=== PATIENT | male | born 2000 | race Caucasian/White ===

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

== ENCOUNTER 2018-10-17 05:14 | Emergency (ER) | payer BC ==
[2018-10-17] MEDS ORDERED: ONDANSETRON DISINTEGRATING 4 MG TAB PO ONE (05:55)
--- NOTE | 2018-10-17 06:23 | EDPHY ---
H & P Stated Complaint: body feels weird after drinking and and taking a lot caffeine pills Time Seen by Provider: 10/17/18 06:06 HPI/ROS: HPI The patient presents with palpitations, chest discomfort which have been present for the last several hours. The patient had a drinking binge which began 2 days ago at 8p and lasted until yesterday at 2:00 p.m. In which he drank multiple beers, cannot recall quantity exactly. At about noon yesterday he also ingested 900 to a 1000 mg of caffeine tabs in an effort to stay awake. He has been up for much of the night and feels fatigued though cannot rest. He has not had any nausea or vomiting. He has not had any shortness of breath. He is here with his friend who used similar substances and is having similar symptoms. He denies any other drug use or prescription medication use. REVIEW OF SYSTEMS 10 systems were reviewed and negative with the exception of the elements mentioned in the history of present illness. PMHx: Healthy Soc Hx: College student PHYSICAL General Appearance: Alert, no appears anxious Eyes: Pupils equal and round no pallor or injection ENT, Mouth: Mucous membranes moist Respiratory: There are no retractions, lungs are clear to auscultation Cardiovascular: Regular rate and rhythm Gastrointestinal: Abdomen is soft and non-tender, no masses, bowel sounds normal Neurological: A&O, moves all extremities Skin: Warm and dry, no rashes Musculoskeletal: Neck is supple non tender Extremities: symmetrical, full range of motion Psychiatric: Patient is oriented X 3, there is no agitation Source: Patient Exam Limitations: No limitations - Personal History Current Tetanus/Diphtheria Vaccine: Yes Current Tetanus Diphtheria and Acellular Pertussis (TDAP): Yes - Medical/Surgical History Hx Asthma: No Hx Chronic Respiratory Disease: No Hx Diabetes: No Hx Cardiac Disease: No Hx Renal Disease: No Hx Cirrhosis: No Hx Alcoholism: No Hx HIV/AIDS: No Hx Splenectomy or Spleen Trauma: No Other PMH: denies - Social History Smoking Status: Current some day smoker Constitutional: Initial Vital Signs Temperature (C) 36.6 C 10/17/18 05:17 Heart Rate 84 10/17/18 05:17 Respiratory Rate 16 10/17/18 05:17 Blood Pressure 156/119 H 10/17/18 05:17 O2 Sat (%) 97 10/17/18 05:17 O2 Delivery Mode Room Air Allergies/Adverse Reactions: cashew nut Allergy (Verified 10/17/18 05:17) walnut Allergy (Verified 10/17/18 05:17) tumbleweed Allergy (Uncoded 10/17/18 05:17) Home Medications: Medication Instructions Recorded AZITHROMYCIN [Z-PACK] 250 mg PO DAILY #1 packet 04/22/17 Medical Decision Making - Diagnostics EKG Interpretation: EKG: Complete interpretation has been separately recorded in the [employer] archive. Summary impression: Normal sinus rhythm Differential Diagnosis: 18-year-old healthy male presents after drinking binge followed by large quantity of caffeine tab ingestion with palpitations and chest discomfort. Here , vital signs are normal, EKG is normal showing no a arrhythmias. Suspect mild alcohol withdrawal coupled with caffeine intoxication exacerbated by sleep deprivation and dehydration could have led to these symptoms. Have advised plenty of fluids, rest, monitor symptoms at home. I have discussed return precautions, however I am not concerned about any serious pathology at this time. - Data Points Medications Given: Discontinued Medications Ondansetron HCl (Zofran Odt) 4 mg PO EDNOW ONE Stop: 10/17/18 05:56 Last Admin: 10/17/18 05:56 Dose: 4 mg Departure - Departure Disposition: Home, Routine, Self-Care Clinical Impression: Palpitations Caffeine intoxication Qualifiers: Complication of substance-induced condition: uncomplicated Qualified Code(s): F15.920 - Other stimulant use, unspecified with intoxication, uncomplicated Alcohol intoxication Qualifiers: Complication of substance-induced condition: uncomplicated Qualified Code(s): F10.920 - Alcohol use, unspecified with intoxication, uncomplicated Condition: Good Instructions: Caffeine Use (ED) Additional Instructions: Please avoid any alcohol use or caffeine use for the next several days. I recommend you drink plenty of fluids and get rest. Referrals: [facility] [[facility]] - As per Instructions
[2018-10-17 06:39] VITALS: BP 150/100
--- NOTE | 2018-10-18 04:38 | CPEKG ---
Test Reason : OPEN Blood Pressure : / mmHG Vent. Rate : 060 BPM Atrial Rate : 060 BPM P-R Int : 121 ms QRS Dur : 091 ms QT Int : 403 ms P-R-T Axes : 070 084 079 degrees QTc Int : 403 ms Sinus rhythm Confirmed by Gladys Moncada ([id number]) on 10/18/2018 4:38:42 AM Referred By: PHYSICIAN ED Confirmed By:Gladys Moncada
== END 2018-10-17 06:38 | disposition home or self-care (01) ==
DX: R00.2 Palpitations (principal); F15.920 Other stimulant use, unspecified with intoxication, uncomplicated; F10.920 Alcohol use, unspecified with intoxication, uncomplicated; F17.200 Nicotine dependence, unspecified, uncomplicated